=== PATIENT | female | born 1980 | race Caucasian/White ===

== ENCOUNTER 2018-03-20 19:12 | Emergency (ER) | payer BC, OTHER ==
--- NOTE | 2018-03-20 19:53 | EDPHY ---
H & P Stated Complaint: LOSS OF PARTS OF THE DAY/MEMORY Time Seen by Provider: 03/20/18 19:39 HPI/ROS: CHIEF COMPLAINT: "I can't remember parts of the day" HISTORY OF PRESENT ILLNESS: 37-year-old female history of migraine headache arrives via private vehicle complaining of episode of amnesia today. She had lunch with her and has minimal recollection of this event. is here in the ER with her and notes that during lunch the patient displayed no altered mental status, no slurred speech, no complaints of pain or discomfort. 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 She had an episode of jamais vu when she was starting to prepar dinner she looked at her day's work and did not remember doing it earlier. At no point has she experienced headaches, slurred speech, gait instability. REVIEW OF SYSTEMS: A ten point review of systems was performed and is negative with the exception of the items mentioned in the HPI PAST MEDICAL & SURGICAL HISTORY: Migraine headache. Appendectomy. . SOCIAL HISTORY: Nonsmoker. No drug use. . FAMILY HISTORY: No family history of coagulopathic or neurologic disease PHYSICAL EXAM (Prior to examination, patient consented to physical exam, hands were washed and my usual and customary physical exam procedures followed) 1) GENERAL: Well-developed, well-nourished, alert and oriented. Answering questions appropriately. Tearful. 2) HEAD: Normocephalic, atraumatic 3) HEENT: Pupils equal, round, reactive to light bilaterally. Sclera anicteric. Nasopharynx, oropharynx, clear, no lesions. Ears bilaterally with normal tympanic membranes. 4) NECK: Full range of motion, no meningeal signs. 5) LUNGS: Clear auscultation bilaterally, no wheezes, no rhonchi, no retractions. 6) HEART: Regular rate and rhythm, no murmur, no heave, no gallop. 7) ABDOMEN: No guarding, no rebound, no focal tenderness, negative McBurney's, negative Childress's, negative Rovsing's, negative peritoneal sign, 8) MUSCULOSKELETAL: Moving all extremities, no focal areas of tenderness, no obvious trauma. No peripheral edema or discoloration. 9) BACK: No CVA tenderness, no midline vertebral tenderness, no fluctuance, no step-off, no obvious trauma, no visual or palpable abnormality. 10) SKIN: No rash, no petechiae. 11) Psychiatric: Patient is oriented X 3, there is no agitation. 12) NEURO: Awake, alert, and oriented to person, place and time. Answers questions appropriately. There were no obvious focal neurologic abnormalities. No cerebellar dysfunction. Cranial nerves 2 through to 12 intact. Normal steady gait. Upper and lower extremities bilaterally with strength 5 / 5, reflexes 2+. DIFFERENTIAL DIAGNOSIS: In no particular order, including but not limited to subarachnoid hemorrhage, transient global amnesia, CVA, migraine headache, tension headache and infectious causes such as meningitis, pharyngitis and sinusitis. - Personal History Current Tetanus/Diphtheria Vaccine: Yes Current Tetanus Diphtheria and Acellular Pertussis (TDAP): Yes - Medical/Surgical History Hx Asthma: No Hx Chronic Respiratory Disease: No Hx Diabetes: No Hx Cardiac Disease: No Hx Renal Disease: No Hx Cirrhosis: No Hx Alcoholism: No Hx HIV/AIDS: No Hx Splenectomy or Spleen Trauma: No Other PMH: MIGRAINES IN THE PAST, APPY - Social History Smoking Status: Never smoked Constitutional: Initial Vital Signs Temperature (C) 37.0 C 03/20/18 19:25 Heart Rate 56 L 03/20/18 19:25 Respiratory Rate 16 03/20/18 19:25 Blood Pressure 144/80 H 03/20/18 19:25 O2 Sat (%) 97 03/20/18 19:25 O2 Delivery Mode Room Air Allergies/Adverse Reactions: cephalexin monohydrate [From Keflex] Allergy (Verified 03/20/18 19:39) Hives Home Medications: Medication Instructions Recorded NK [No Known Home Meds] 03/20/18 Medical Decision Making - Diagnostics Imaging Results: Imaging Impressions Brain MRI 03/20/18 20:05 Impression: Normal MRI of the brain without and with contrast. Results called and discussed with Ness COMBS on 03/20/2018 at 21:31. Images reviewed myself ED Course/Re-evaluation: 8:06 p.m.: Patient has a nonfocal exam, multiple episodes of nontraumatic amnesia this afternoon. Discussed the case with secondary supervising physician Dr. Gaby Adhikari. Plan will be laboratory studies, MRI. 9:37 p.m.: Re-evaluation, she is resting comfortably. I discussed her MRI results which are negative. She remains with a nonfocal exam. Discussed possible etiologies for symptoms including but not limited to TIA, migraine variant. At this time as she has a nonfocal exam is asymptomatic I think the patient can be discharged home. Stressed the importance of follow-up with Neurology and provided this referral information. Definitely if she develops new or other neurologic symptoms or complaints she is to return to the closest emergency department immediately. She and her feel comfortable being discharged. - Data Points Laboratory Results: Laboratory Results 03/20/18 20:04 03/20/18 20:04 03/20/18 03/20/18 03/20/18 20:04 20:04 20:04 WBC 7.34 10^3/uL 10^3/uL (3.80-9.50) RBC 4.04 10^6/uL L 10^6/uL (4.18-5.33) Hgb 13.0 g/dL g/dL (12.6-16.3) Hct 37.5 % L % (38.0-47.0) MCV 92.8 fL fL (81.5-99.8) MCH 32.2 pg pg (27.9-34.1) MCHC 34.7 g/dL g/dL (32.4-36.7) RDW 13.0 % % (11.5-15.2) Plt Count 232 10^3/uL 10^3/uL (150-400) MPV 9.0 fL fL (8.7-11.7) Neut % (Auto) 45.0 % % (39.3-74.2) Lymph % (Auto) 46.5 % H % (15.0-45.0) Atkinson % (Auto) 6.0 % % (4.5-13.0) Eos % (Auto) 1.8 % % (0.6-7.6) Baso % (Auto) 0.4 % % (0.3-1.7) Nucleat RBC Rel Count 0.0 % % (0.0-0.2) Absolute Neuts (auto) 3.31 10^3/uL 10^3/uL (1.70-6.50) Absolute Lymphs (auto) 3.41 10^3/uL H 10^3/uL (1.00-3.00) Absolute Monos (auto) 0.44 10^3/uL 10^3/uL (0.30-0.80) Absolute Eos (auto) 0.13 10^3/uL 10^3/uL (0.03-0.40) Absolute Basos (auto) 0.03 10^3/uL 10^3/uL (0.02-0.10) Absolute Nucleated RBC 0.00 10^3/uL 10^3/uL (0-0.01) Immature Gran % 0.3 % % (0.0-1.1) Immature Gran # 0.02 10^3/uL 10^3/uL (0.00-0.10) Sodium 140 mEq/L mEq/L (135-145) Potassium 4.0 mEq/L mEq/L (3.3-5.0) Chloride 103 mEq/L mEq/L (97-110) Carbon Dioxide 27 mEq/l mEq/l (22-31) Anion Gap 10 mEq/L mEq/L (8-16) BUN 13 mg/dL mg/dL (7-23) Creatinine 0.8 mg/dL mg/dL (0.6-1.0) Estimated GFR > 60 Glucose 86 mg/dL mg/dL (70-100) Calcium 9.7 mg/dL mg/dL (8.5-10.4) Beta HCG, Qual NEGATIVE Departure - Departure Disposition: Home, Routine, Self-Care Clinical Impression: Amnesia memory loss Condition: Good Instructions: Transient Global Amnesia (ED) Additional Instructions: RETURN TO THE ED IMMEDIATELY IF YOU DEVELOP HEADACHE, IF YOU DEVELOP SLURRED SPEECH, PROBLEMS WALKING, IF YOU DEVELOP A FEVER, NECK PAIN OR NECK STIFFNESS, OR IF YOU BECOME CONFUSED OR ABNORMALLY DROWSY. Referrals: Rufino Cevallos MD [Medical Doctor] - 2-3 days, call for appt. (DR. RUFINO CEVALLOS IS A NEUROLOGIST) Stand Alone Forms: Airline Excuse, Work Excuse
[2018-03-20 20:21] LABS: PLATELET COUNT 232 10^3/uL (150-400)
[2018-03-20] MEDS ORDERED: GADOBUTROL 10 ML VIAL IVP ONE (20:44)
[2018-03-20 21:54] VITALS: BP 119/76
== END 2018-03-20 21:53 | disposition home or self-care (01) ==
DX: R41.3 Other amnesia (principal)
CPT/HCPCS: A9585